=== PATIENT | female | born 1995 ===

== ENCOUNTER 2024-07-11 08:18 | Emergency (ER) | payer BC, SELFPAY ==
[2024-07-11 08:26] VITALS: BP 120/74; PULSE 61; RESP 18; TEMP 36.6; O2SAT 99; BMI 30.2
--- NOTE | 2024-07-11 08:43 | ED.GENADULT ---
HPI - General Adult General Date Seen: 07/11/24 Chief complaint: Anxiety Stated complaint: tunnel vision, body tingly, SOB Time Seen by Provider: 07/11/24 08:28 Source: patient Mode of arrival: ambulatory Limitations: no limitations History of Present Illness HPI narrative: Patient is a 29-year-old female presenting to the emergency department for an episode of lightheadedness, shortness of breath, tunnel vision. She states she woke up this morning and was not quite feeling well but has been drinking plenty of water. She states she will frequently wake up not feeling well she states she has baseline anxiety but this seemed worse. She was driving her car to work when she suddenly got very lightheaded, developed tunnel vision and became short of breath. She states her hands and arms became tingly. Symptoms are starting to improve but have not fully resolved yet. She states she has never had symptoms this bad before. Denies fevers, chills, chest pain, headache, weakness, abdominal pain. Had some nausea that has since resolved. She states when it occurred she suddenly felt very warm. No history of blood clots. She is currently on a hormonal control pill. No other concerns noted Related Data Home Medications ?Medication ?Instructions ?Recorded ?Confirmed No Known Home Medications 07/11/24 07/11/24 Allergies Allergy/AdvReac Type Severity Reaction Status Date / Time No Known Drug Allergies Allergy Verified 07/11/24 08:26 Review of Systems Status of ROS: Reports: 10 or more systems reviewed and unremarkable except as noted in History and below PFSH PFS Social History Smoking Status: Current every day smoker What tobacco products do you use: cigarettes How often do you have a drink containing alcohol: never AUDIT-C Alcohol total score: 0 Non-prescribed substance use: marijuana (any form) Exam Narrative: Exam Narrative: Const: Well-nourished, Well-developed, in mild distress Eyes: PERRL, no conjunctival injection, and symmetrical lids HENT: Atraumatic external nose and ears. Moist mucous membranes. Neck: Symmetric, trachea midline, No thyromegaly. CVS: RRR, No murmurs or gallops. Peripheral pulses 2+ and equal in all extremities RESP: Unlabored respiratory effort. Clear to auscultation bilaterally. GI: Nontender/Nondistended, No rebound or guarding. MSK:Extremities w/o deformity, Normal Active ROM Skin: Warm, Dry. No rashes or lesions. Neuro: Normal Muscle tone, Cranial nerves 2-12 grossly intact, normal [id number], normal [id number], normal gait, normal strength 5/5 upper lower extremities bilaterally, normal sensation upper and lower extremities bilaterally, normal rapid alternating movements. Psych: Awake, Alert, & Oriented x3. Appropriate mood and affect. Const: Vital Signs, click to edit/add: Vital Signs - 24 hr 07/11/24 08:26 Temperature 97.8 F Pulse Rate [Pulse Oximeter] 61 Respiratory Rate 18 Blood Pressure [Ri ght Upper Arm] 120/74 Pulse Oximetry 99 Oxygen Delivery Me thod Room Air Course Vital Signs Vital signs: Initial Vital Signs Temperature 97.8 F 07/11/24 08:26 Temperature Source Temporal Artery Scan 07/11/24 08:26 Pulse Rate 61 07/11/24 08:26 Respiratory Rate 18 07/11/24 08:26 Blood Pressure 120/74 07/11/24 08:26 Blood Pressure Mean 89 07/11/24 08:26 Pulse Oximetry 99 07/11/24 08:26 Oxygen Delivery Method Room Air 07/11/24 08:26 Vital Signs Temperature 97.8 F 07/11/24 08:26 Pulse Rate 61 07/11/24 08:26 Respiratory Rate 18 07/11/24 08:26 Blood Pressure 120/74 07/11/24 08:26 Pulse Oximetry 99 07/11/24 08:26 Oxygen Delivery Method Room Air 07/11/24 08:26 Temperature 97.8 F 07/11/24 08:26 Pulse Rate 61 07/11/24 08:26 Respiratory Rate 18 07/11/24 08:26 Blood Pressure 120/74 07/11/24 08:26 Pulse Oximetry 99 07/11/24 08:26 Oxygen Delivery Method Room Air 07/11/24 08:26 Medical Decision Making MDM Narrative Medical decision making narrative: Patient is a 29-year-old female who presents to emergency department for what sounds like either an anxiety attack or near syncopal event. Since she continues to have this mild shortness of breath I will broaden the workup. I cannot PERC her out due to her hormonal control pill. D-dimer will be ordered to rule out blood clot. Will also do a CBC, BMP, magnesium to rule out any electrolyte or metabolic disorders. EKG and troponin ordered to look for signs of cardiac abnormalities. This could also be baseline viral in nature and COVID/flu/RSV test will be ordered. She looks otherwise stable at this time. Neurological exam was reassuring and her symptoms she describes sounds like lightheadedness and not dizziness. Do not believe head imaging is necessary. I do believe all the symptoms can be explained by either near syncopal event followed by anxiety from that event or anxiety from the start. Patient's lab work returned showing no concerning abnormalities. EKG reviewed by myself shows no concerning findings. Chest x-ray reviewed by myself and the radiologist shows no acute abnormalities. This time I cannot say insert causes symptoms but everything appears normal and was able to rule out all the emergent issues. She is safe for discharge she is agreeable to this plan. Lab Data Labs: Lab Results 07/11/24 07/11/24 Range/Units 08:45 08:51 WBC 9.05 (4.50-11.00) K/uL RBC 5.24 H (4.00-5.20) m/uL Hgb 15.8 (12.0-16.0) gm/dL Hct 48.3 (33.0-51.0) % MCV 92 (80-100) fL MCH 30 (26-34) pg MCHC 33 (32-36) gm/dL RDW Coeff of Maurizio 12.7 (11.5-15.5) % Plt Count 324 (140-440) K/uL Neut % (Auto) 65.1 (42.0-72.0) % Lymph % (Auto) 24.8 (20-44) % Bethel % (Auto) 7.7 (0.0-11.0) % Eos % (Auto) 1.1 (0.0-7.0) % Baso % (Auto) 1.0 (0.0-3.0) % Neut # (Auto) 5.89 (1.7-7.0) K/uL Lymph # (Auto) 2.24 (0.90-2.90) K/uL Bethel # (Auto) 0.70 (0.00-0.90) K/UL Eos # (Auto) 0.10 (0.00-0.50) K/uL Baso # (Auto) 0.09 (0.00-0.30) K/uL Abs Immat Gran (auto) 0.03 (0.00-0.30) K/uL Imm/Tot Granulo (auto) 0.3 % D-Dimer Quant (PE/DVT) < 0.27 (0.00-0.50) ug/ml Sodium 141 (135-149) mmol/L Potassium 4.0 (3.6-5.1) mmol/L Chloride 105 (96-114) mmol/L Carbon Dioxide 25 (20-32) mmol/L Anion Gap 11 (7-15) mEq/L BUN 11 (5-24) mg/dL Creatinine 0.6 (0.5-1.5) mg/dL Estimated Creat Clear 110.41 Estimated GFR 125 ml/min Glucose 109 (60-115) mg/dL Calcium 9.4 (8.4-10.6) mg/dL Magnesium 2.1 (1.5-2.6) mg/dL Troponin I < 0.01 (0.01-0.04) ng/mL HCG, Qual Negative (Negative) SARS-CoV-2 (PCR) Negative SARS-CoV-2 (Negative) Influenza Type A (PCR) Negative PCR FLU A (Negative) Influenza Type B (PCR) Negative PCR FLU B (Negative) RSV (PCR) Negative PCR RSV (Negative) Imaging Data Chest x-ray: Attestation: I have reviewed the pertinent imaging results. Radiologist's impression: No acute cardiopulmonary abnormality. Dictated by Alex Mariscal MD @ 07/11/2024 9:59:20 AM ECG Data Attestation: I personally reviewed and interpreted this ECG as follows: Prior ECG tracings: not available for review Interpretation: Normal sinus rhythm with a rate of 61 beats per minute, normal intervals, normal axis, no ST or T-wave abnormalities Discharge Plan Discharge Clinical Impression: Near syncope Patient Disposition: Home, Self-Care Condition: Stable Instructions: Near Syncope (ED) Additional Instructions: If symptoms persist follow-up with the primary care provider. Return to emergency department for new or worsening symptoms. Prescriptions: No Action No Known Home Medications Follow Up/Referrals: Provider,Not a Local [Primary Care Provider] - Stand Alone Forms: Typo Keyboards Info Instructions
--- OUTSIDE RECORDS SUMMARY | 2024-07-11 08:58 | XMS_ITS | Clinical Summary ---
Author Organization [facility] Address [address] [place] [address]. [place] [address] Care Team Providers Care Board Finisher Name Role Phone Clinic, [facility] ov[facility] Allergies Active Allergy Reactions Criticality Noted Date Comments No Known Allergies 05/10/2003 Medications * This document contains information received from the source organization and may not represent a complete record from that organization. ALBUTEROL IN Active Vit-Fe Fumarate-FA ( MULTIVITAMIN PLUS IRON) 27-1 MG TABSIndications: Take 1 tablet by mouth daily Active acetaminophen (TYLENOL) 325 MG tabletIndication s:Single liveborn infant delivered vaginally Take 2 tablets (650 mg) by mouth every 6 hours as needed for mild pain 40 tablet 1 4 Active docusate sodium (COLACE) 100 MG capsuleIndicatio ns:Single liveborn infant delivered vaginally Take 1 capsule (100 mg) by mouth daily 30 capsule 4 Active hydrocortisone, Perianal, (ANUSOL-HC) 2.5 % creamIndications :Single liveborn delivered vaginally Place rectally 3 times daily as needed for hemorrhoids 30 g 4 Active ibuprofen (ADVIL/MOTRIN) 800 MG tabletIndication s:Single liveborn infant delivered vaginally Take 1 tablet (800 mg) by mouth every 6 hours as needed for other (cramping) 40 tablet 1 4 Active lanolin ointmentIndicati ons:Single liveborn infant delivered vaginally Apply topically every hour as needed for other (sore nipples) 7 g 3 4 Active Active Problems Problem Noted Date Diagnosed Date Indication for care in labor or delivery 024 Immunizations Name Administration Dates Next Due HPV 12/18/2008,05/14/2008 HPV9 (Gardasil) 08/27/2016 TDAP Vaccine (Adacel) 05/14/2008 Family History Medical History Relation Comments Family History Negative Father Family History Negative Mother Myocardial Infarction Paternal Grandfather Ovarian Cancer Paternal Half-Sister Relation Status Comments Brother Alive Father Alive Maternal Grandfather Maternal Grandmother Mother Alive Paternal Grandfather (Age 77) Paternal Grandmother Alive Paternal Half-Sister Alive Sister Alive Social History Tobacco Use Types Packs/Day Years Used Date Smoking Tobacco: Former Cigarettes Smokeless Tobacco: Never Tobacco Cessation:Counseling Given: Not Answered Alcohol Use Standard Drinks/Week Comments No 0 (1 standard drink = 0.6 oz pur e alcohol) PHQ-2 Answer Date Recorded PHQ-2 Score 0 04/20/2018 [place] Depression Scale Answer Date Recorded Last EPDS Total Score Not on file 08/12/2023 The thought of harming myself has occurred to me . Never 08/12/2023 Adolescent Education Answer Date Record ed Getting School Help Needed Not on file 07/01 Comments No Sex and Gender Information Value Date Recorded Sex Assigned at Female 08/09/2023 6:20 PM CDT Legal Sex Female 4:31 AM DIRECTOR OF PULMONARY UNIT Gender Identity Female 08/09/2023 6:20 PM CDT Sexual Orientation Not on file Last Filed Vital Signs Vital Sign Reading Time Taken Comments Blood Pressure 136/66 08/13/2023 9:00 AM CDT Pulse 74 08/13/2023 9:00 AM CDT Temperature 36.8 C (98.2 F) 08/13/2023 9:00 AM CDT Respiratory Rate 18 08/13/2023 9:00 AM CDT Oxygen Saturation 98% 08/11/2023 5:08 AM CDT Inhaled Oxygen Concentration - - Weight 72.6 kg (160 lb) 08/07/2018 11:52 AM CDT Height 157.5 cm (5' 2) 08/09/2023 8:05 PM CDT Body Mass Index 29.26 11/07/2017 11:42 PM CDT Plan of Treatment Health Maintenance Due Date Last Done Comments ADVANCE CARE PLANNING 1996 ANNUAL REVIEW OF HM ORDERS 1996 YEARLY PREVENTIVE VISIT 1999 COVID-19 Vaccine ( season) 2023 INFLUENZA VACCINE (#1) 2023 , 12/28/2008, 05/14/2008, Additional history exists PHQ-2 (once per calendar year) 2024 08/27/2016 PAP 12/18/2025 12/18/2022 DTAP/TDAP/TD IMMUNIZATION (9 - Td or Tdap) 06/16/2033 06/17/2023, 02/02/2020, 05/14/2008, Additional history exists ZOSTER IMMUNIZATION (1 of 2) 2046 HEPATITIS B IMMUNIZATION Completed 997, 1996, 1996 MENINGITIS IMMUNIZATION Aged Out 05/14/2008 No l onger eligible based on patient's age to complete this topic HPV IMMUNIZATION Completed 08/27/2016, 11/2008, 05/14/2008 CHLAMYDIA SCREENING Discontinued 12/18/2022 HEPATITIS C SCREENING Completed 12/18/2022 HIV SCREENING Completed 12/18/2022, 12/18/2022 Pneumococcal Vaccine: Pediatrics (0 to 5 Years) and At-Risk Patients (6 to 49 Years) Aged Out No longer eligible based on patient's age to complete this topic Procedures Procedure Name Priority Date/Time Associated Diagnosis Comments HIV 1&2 ANTIBODY (EXTERNAL RESULT) Routine 12/18/2022 9:00 AM CDT from Last 3 Months or Most Recently Relevant to Health Maintenance Results * HIV-1 Antibody (External Result) (12/18/2022 9:00 AM CDT) HIV 1&2 Antibody (External) Negative Nonreactive EXTERNAL LAB 12/18/2022 9:00 AM CDT us Patient Reported LAB - HIM EXTERNAL RESULT Final Result EXTERNAL LAB External Lab from Last 3 Months or Most Recently Relevant to Health Maintenance Insurance none (Work) [id number] [place] [id number] [place] [address] Advance Directives For more information, please contact: [phone] * Full Code (Latest Code Status on File) Date Activated Date Inactivated Comments 08/09/2023 8:55 PM 08/13/2023 8:41 AM All basic and advanced life-sustaining interventions are performed as appropriate Question Answer Comments Code status determined by: Discussion with patie nt/ legal decision maker * Full Code Date Activated Date Inactivated Comments 07/03/2010 10:48 AM 07/07/2010 4:31 PM Care Teams Board Finisher Relationship Specialty Start Date End Date Clinic, [facility] [address] [address] PCP - General 09/08/22
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
--- OUTSIDE RECORDS SUMMARY | 2024-07-11 08:58 | XMS_ITS | Clinical Summary ---
Author Organization [facility] Address [facility] [place] [address] Care Team Providers Care Plant Health Care Technician Name Role Phone Pcp, No Primary Care Provider Eddie Veliz, [facility] Allergies No known active allergies Medications ondansetron (ZOFRAN ODT) 4 mg disintegrating tabletIndications:N on-intractable vomiting with nausea, unspecified vomiting type Place 1 Tablet (4 mg) on the tongue every 8 hours if needed for Nausea/Vomi ting. 10 Tablet 1 Active aspirin (ECOTRIN) 81 mg enteric coated tablet Take 1 Tablet (81 mg) by mouth once daily with a meal. 4 Active vit 28/iron fum/folic (multivitamin folic acid 1 mg) Take 1 Tablet by mouth once daily. 4 Active Active Problems Comments Yes No known active problems Social History Tobacco Use Types Packs/Day Years Used Date Smoking Tobacco: Never Assessed Social Connections Answer Date Recorded Do you often feel lonely or isolated from those around you? 0 08/08/2023 Financial Resource Strain Answer Date R ecorded Difficulty of Paying Living Expenses 3 2024 Difficulty of Paying Living Expenses Not on file 2024 Food Insecurity Answer Date Recorded Do you worry your food will run out before you are able to buy more? 1 08/08/2023 Transportation Needs Answer Date Record ed Does lack of transportation keep you from medica l appointments? 1 08/08/2023 Does lack of transportation keep you from work, meetings or getting things that you need? 1 08/08/2023 Housing Stability Answer Date Recorded What is your housing situation today? 1 08/08/2023 Utilities Answer Date Recorded Do you have trouble paying f or utilities (for example, heat, electricity, water, phone)? 1 08/08/2023 Comments Yes Sex and Gender Information Value Date Recorded Sex Assigned at Not on file Legal Sex Female 3:37 PM CDT Gender Identity Not on file Sexual Orientation Not on file Obstetrics History Para Term AB IAB SAB Ectopic Multiple Livin g Live Births 1 Date Outcome GA Total Labor Labor/2nd/3rd Weight Sex Type Anes PTL Christine A1 A5 Name Clin Current Last Filed Vital Signs Vital Sign Reading Time Taken Comments Blood Pressure 114/54 08/08/2023 11:46 AM CDT Pulse 93 08/08/2023 11:46 AM CDT Temperature 36.8 C (98.2 F) 08/08/2023 11:46 AM CDT Respiratory Rate 16 08/08/2023 11:46 AM CDT Oxygen Saturation 96% 08/08/2023 11:46 AM CDT Inhaled Oxygen Concentration - - Weight 77.1 kg (170 lb) 10/29/2020 3:43 PM CDT Height 157.5 cm (5' 2) 10/29/2020 3:43 PM CDT Body Mass Index 31.09 10/29/2020 3:43 PM CDT Plan of Treatment Health Maintenance Due Date Last Done Comments Tdap 2007 Depression screening for age 12+ 2008 HIV for age 15-65 2011 BMI (ht and wt on same day) for age 18+ 2014 Hepatitis C screening for ag e 18-79 2014 Tetanus booster 2016 Pap test for age 21-65 2017 COVID-19 vaccine series ( - 2023- season) 2023 Influenza Vaccine (Season Ended) 2024 RSV vaccine for adults or (1 - 1-dose 75+ series) 2071 Pneumococcal series for age 6-49 Aged Out No longer eligible based on patient's age to complete this topic Insurance [facility] [place] [facility] Care Teams Plant Health Care Technician Relationship Specialty Start Date End Date Pcp, No . PCP - General 08/08/[address] [facility] [address] [place] [address] 08/08/23
--- OUTSIDE RECORDS SUMMARY | 2024-07-11 08:58 | XMS_ITS | Encounter Summary ---
Author Organization [facility] Address [address] [place], [place] [address]. [place] [address] Care Team Providers Care Lvn Lpn Name Role Phone Poli Guadarrama MD Primary Care Provider Skyler [place] Primary Care Provider Unavailable [facility] Primary Care Provider No Ref-Primary, Physician Primary Care Provider Vaughn [place] Primary Care Provider Unavailable Jeremiah Campuzano MD Unavailable [phone] Jeremiah Campuzano MD Unavailable [phone] [facility] [place] Brooke [place] Primary Care Pr ovider Encounter Details Date Type Department Care Team ([facility] st Contact Info) Description 07/07/2010 Telephone [facility] Behavioral Health Intake [address] [place] [id number] Generic, Behavioral Intake, Social History Tobacco Use Types Packs/Day Years Used Date Smoking Tobacco: Never Alcohol Use Standard Drinks/Week Comments Not Asked 0 (1 standard drink = 0.6 oz pur e alcohol) Comments Unknown Sex and Gender Information Value Date Recorded Sex Assigned at Female 08/09/2023 6:20 PM CDT 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 kab documented in this encounter Plan of Treatment Not on file documented as of this encounter Visit Diagnoses Not on filedocumented in this encounter Care Teams Lvn Lpn Relationship Specialty [place] [address] [place] [address] PCP - General 05/10/03 09/28/11 [facility] [address] [place] [address] PCP - General 09/29/11 08/25/[address] [address] PCP - General Internal Medicine 08/26/16 08/26/16 No Ref-Primary, Physician PCP - General 08/27/16 11/06/17 [facility] [address] [place] [address] PCP - General Family Practice 11/07/17 09/07/22 Jeremiah Campuzano MD [address] [place] [address] PCP - Assigned PCP 05/15/18 06/14/18 [facility] [address] [place] [address] PCP - General 09/08/22 Jeremiah Campuzano MD [address] [place] [address] Assigned PCP 02/27/18 09/02/19 documented as of this encounter
[2024-07-11 08:59] LABS: Basophils Absolute Auto 0.09 K/uL (0.00-0.30); Eosinophils Percent Auto 1.1 % (0.0-7.0); Hematocrit 48.3 % (33.0-51.0); Hemoglobin* 15.8 gm/dL (12.0-16.0); Immature Granulocytes Abs Auto 0.03 K/uL (0.00-0.30); Immature Granulocytes Pct Auto 0.3 %; Lymphocytes Absolute Auto 2.24 K/uL (0.90-2.90); Lymphocytes Percent Auto 24.8 % (20-44); Mean Corpuscular HGB Conc 33 gm/dL (32-36); Mean Corpuscular Hemoglobin 30 pg (26-34); Mean Corpuscular Volume 92 fL (80-100); Monocytes Percent Auto 7.7 % (0.0-11.0); Neutrophils Absolute Auto 5.89 K/uL (1.7-7.0); Neutrophils Percent Auto 65.1 % (42.0-72.0); Platelet Count* 324 K/uL (140-440); RDW Coefficient of Variation % 12.7 % (11.5-15.5); Red Blood Count 5.24 m/uL (4.00-5.20); White Blood Count* 9.05 K/uL (4.50-11.00)
[2024-07-11 09:04] LABS: Slide Review Reflex No
[2024-07-11 09:11] LABS: Chloride* 105 mmol/L (96-114); Sodium* 141 mmol/L (135-149)
[2024-07-11 09:14] LABS: Anion Gap 11 mEq/L (7-15); Blood Urea Nitrogen* 11 mg/dL (5-24); Carbon Dioxide* 25 mmol/L (20-32); Creatinine* 0.6 mg/dL (0.5-1.5); Est. Creatinine Clearance* 110.41; Estimated Glomerular Filt Rate 125 ml/min
[2024-07-11 09:15] LABS: Calcium* 9.4 mg/dL (8.4-10.6); Glucose* 109 mg/dL (60-115); HCG Qualitative Serum* Negative (Negative); Magnesium* 2.1 mg/dL (1.5-2.6)
[2024-07-11 09:19] LABS: D Dimer Quantitative* < 0.27 ug/ml (0.00-0.50)
[2024-07-11 09:27] LABS: Troponin I* < 0.01 ng/mL (0.01-0.04)
[2024-07-11 09:31] LABS: PCR FLU A Negative PCR FLU A (Negative); PCR FLU B Negative PCR FLU B (Negative); PCR RSV Negative PCR RSV (Negative); SARS PCR* Negative SARS-CoV-2 (Negative)
--- NOTE | 2024-07-11 09:36 | CRLHL7_ITS ---
For Patients: As a result of the Century Cures Act, medical imaging exams and procedure reports are released immediately into your electronic medical record. You may view this report before your referring provider. If you have questions, please contact your health care provider. Indication: Shortness of breath Comparison: None available. Technique: PA and lateral views of the chest Findings: There is no focal consolidation, effusion, or pneumothorax. The cardiomediastinal silhouette is within normal limits. The bony thorax is grossly intact. Impression: No acute cardiopulmonary abnormality. Dictated by Alex Mariscal MD @ 07/11/2024 9:59:20 AM (Electronically Signed)
== END 2024-07-11 10:17 | disposition home or self-care (01) ==
PROVIDERS: Emergency Provider Student in an Organized Health Care Education/Training Program
DX: R55 Syncope and collapse (principal)
CPT/HCPCS: 36415; 71046; 80048; 83735; 84484; 84703; 85025; 85379; 87631; 93005; 99284